=== PATIENT | female | born 1940 | race Caucasian/White ===

== ENCOUNTER 2017-01-20 14:24 | Outpatient (CLI) | payer OTHER ==
--- NOTE | 2017-01-20 15:27 | DIAGNOSTIC IMAGING REPORT ---
PROCEDURE: XR CHEST 2 VIEW INDICATION: PRE OP TECHNIQUE: PA and lateral views. COMPARISON: None. FINDINGS: Lungs are clear. Heart and mediastinum are normal. Thorax is normal. Ossification of breast implants. IMPRESSION: 1. Negative chest.
== END 2017-01-20 23:00 ==
LOC: XR SRH 14:24
DX: Z01.818 Encounter for other preprocedural examination (principal); Z01.812 Encounter for preprocedural laboratory examination

== ENCOUNTER 2017-01-26 10:24 | Emergency (ER) | payer OTHER ==
--- NOTE | 2017-01-26 12:11 | DIAGNOSTIC IMAGING REPORT ---
PROCEDURE: XR RIBS UNILAT W/PA CHEST-LT INDICATION: TRAUMA/INJURY TECHNIQUE: Two views of the left ribs with single PA view chest. COMPARISON: Chest dated 01/20/2017 FINDINGS: LEFT RIBS: No displaced rib fractures. No suspicious rib lesions. CHEST: Normal cardiomediastinal contour. Clear lungs without pleural effusion, pneumothorax, or contusion. The other visible osseous structures are intact. IMPRESSION: 1. Intact left ribs. 2. Normal chest without radiographic evidence of trauma.
--- NOTE | 2017-01-26 12:52 | ED NURSING NOTES ---
Clinical Report - Nurses [facility] [address] [place] [address] 01/26/2017 10:25 Patient: ADY WIGGINS TRIAGE Triage time 10:35. Acuity: LEVEL 4. Chief Complaint: FALL 1-2 FEET OFF A LADDER while standing, onto a hard surface. Alert. No acute distress. SEPSIS SCREEN: Sepsis Screen. Negative (no infection suspected/documented). --10:51 Carolina Hines R.N. 10:34 01/26/17. BP: 157/97. HR: 68. RR: 16. O2 saturation: 95%. Temp: 98.2 F. Pain level now: 12/26. Additional comments: worse with movement 08/25. --10:51 Carolina Hines R.N. Weight: 60.3 kg stated. Height/Length: 56 inches Per Patient. BMI: 29.8. --10:47 Carolina Hines R.N. Medications D3 Adult Oral. --10:39 Carolina Hines R.N. Citalopram Hydrobromide Oral. --10:39 Carolina Hines R.N. Levothyroxine Sodium Oral. --10:40 Carolina Hines R.N. Premarin Oral. --10:40 Carolina Hines R.N. Alendronate Sodium Oral. --10:40 Carolina Hines R.N. Spiriva HandiHaler Inhalation. --10:40 Carolina Hines R.N. Medication/allergy information source: the patient. --10:51 Carolina Hines R.N. Allergies Codeine. --10:38 Carolina Hines R.N. History Arrived by private vehicle. Historian: patient. Unaccompanied. Primary physician (vandana). This occurred (7 days ago). Occurred (washer). ( climbed up on washer and leaned over states she did not fall but the pressure from laying across the washer has caused pain). She has had trouble walking. Limited ROM present. ( any twisting makes pain worse). No loss of consciousness. No alteration in mental status, dizziness or neck pain. 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 PAST MEDICAL HX: Osteoporosis. Immunizations: up-to-date. The patient is post-menopausal. ( copd, hypothyroid,). SURGERY HX: Bladder suspension (removal/repair). Right shoulder surgery. SOCIAL HX: Current every day smoker (electronic cigarrettes). No alcohol use or drug use. ABUSE ASSESSMENT: No report of abuse. FALL RISK ASSESSMENT: Fall risk assessment completed. No fall risk identified. NUTRITIONAL RISK ASSESSMENT: The nutritional risk assessment revealed no deficiencies. FUNCTIONAL ASSESSMENT: Functional assessment: no impairments noted. LEARNING NEEDS ASSESSMENT: The learning needs assessment revealed no barriers. SKIN INTEGRITY ASSESSMENT: Skin integrity risk assessment completed. No skin integrity risk identified. --10:51 Carolina Hines R.N. PROBLEMS: COPD - Chronic Obstructive Pulmonary Disease. --10:43 Carolina Hines R.N. Assessment GENERAL / NEURO / PSYCH: Alert. Oriented X 4. Patient appears calm and cooperative. RESPIRATORY: Respirations not labored. CVS: Capillary refill less than 2 seconds. SKIN: Mucous membranes are pink. Skin is warm. --10:51 Carolina Hines R.N. Interventions ID band on patient. To treatment room. --10:51 Carolina Hines R.N. PHYSICAL ASSESSMENT 11:40 01/26/17. GENERAL / NEURO / PSYCH: Alert. Appears in no acute distress. RESPIRATORY: Respirations not labored. Chest nontender. Decreased breath sounds. CVS: Capillary refill less than 2 seconds. GI / : Abdomen soft and nontender. EXTREMITIES: Limited ROM present. SKIN: Skin intact. Skin is pale. Skin is warm and dry. --11:40 Carolina Hines R.N. NURSING PROGRESS NOTES The plan of care for this patient has been created. Patient gowned. Head of bed elevated. Warming measures: blanket applied. Reassurance given. Two patient identifiers checked. Call light placed in reach. Bed placed in lowest position. Brakes of bed on. Patient ready for evaluation- chart flagged and ED physician notified. ED physician at the patient's bedside. --10:55 Carolina Hines R.N. 11:37 01/26/2017 Motrin PO Tablets 800 mg given. Allergies verified and confirmed 5 rights. --11:37 Carolina Hines R.N. 12:18 01/26/2017 Motrin PO Response: pain is improving. Symptoms have improved the patient feels better. --12:18 Carolina Hines R.N. DISPOSITION / DISCHARGE 13:10 01/26/17. Condition at departure: improved. The goals identified in the patient's plan of care were met. No learning barriers present. Discharge instructions provided and reviewed with the patient. Reviewed warnings. Reviewed medication(s). Treatments reviewed. Patient verbalized understanding. Written instructions provided in Kiswahili. The patient was discharged by the physician. She was discharged home and unaccompanied at time of discharge. She left the Emergency Department ambulatory and via private vehicle. Patient driving. FALL RISK ASSESSMENT: Fall risk assessment completed. No fall risk identified. --13:10 Hemal De Leon R.N. 13:09 01/26/17. BP: 144/86. HR: 77. RR: 16. O2 saturation: 99% on room air. Temp: 98.2 F (oral). Pain level now: 01/23. --13:10 Hemal De Leon R.N. 13:10 01/26/17. Departure time: 13:10. --13:10 Hemal De Leon R.N. Locked/Released at 01/26/2017 13:14 by Hemal De Leon R.N.
--- NOTE | 2017-01-26 12:52 | ED CLINICAL REPORT ---
Clinical Report - Physicians/Mid Levels [facility] [address] [place] [address] 01/26/2017 10:25 Patient: ADY WIGGINS Time Seen: 1042. Arrived- By private vehicle. Historian- patient. HISTORY OF PRESENT ILLNESS Chief Complaint: Injury to CHEST. Location of injuries- chest. The injury occurred about 1 week ago. ( Leaning into washing machine injured L ribs.). Occurred at home. Patient did not fall. The patient complains of moderate pain. No blow to the head. REVIEW OF SYSTEMS The patient has had chest pain. No difficulty breathing or fever. All systems otherwise negative, except as recorded above. PAST HISTORY COPD - Chronic Obstructive Pulmonary Disease Osteoporosis Hypothyroidism. Medications: Spiriva HandiHaler Inhalation. Alendronate Sodium Oral. Premarin Oral. Levothyroxine Sodium Oral. Citalopram Hydrobromide Oral. D3 Adult Oral. Allergies: Codeine. 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 No alcohol use or drug use. ADDITIONAL NOTES The nursing notes have been reviewed with agreement regarding the chief complaint, PMH and patient medications and allergies. PHYSICAL EXAM Vital Signs: 01/26/2017 10:35 BP: 157/97. HR: 68. RR: 16. O2 saturation: 95%. Temp: 98.2 F. Pain level now: 2/10. Have been reviewed. Hypertensive. Heart rate normal. Respiratory rate normal. Temperature normal. Oxygen saturation normal. Appearance: Alert. Oriented X3. No acute distress. ENT: Pharynx normal. CVS: Heart sounds normal. Rate normal. Rhythm normal. Respiratory: No respiratory distress. Chest wall injury: mild tenderness located in the middle, left and lateral chest. No abrasion. No ecchymosis. No deformity. No splinting present. No paradoxical movement. Breath sounds normal. Abdomen: No visible injury. Soft and nontender. Bowel sounds normal. No organomegaly. No mass. Back: No tenderness. ROM normal. Skin: Skin intact. Skin warm and dry. Extremities: Extremities atraumatic. Neuro: Oriented X 3. LABS, X-RAYS, AND EKG Sternum / Ribs X-rays: No fracture present. Normal lung markings present. Soft tissues normal. No bony lesion present. (1. Intact left ribs. 2. Normal chest without radiographic evidence of trauma.). Views: left ribs. PA of chest. Technique: good. The X-rays were independently viewed by me, interpreted by the radiologist and discussed with the radiologist. Prior films were not available for comparison. Interpretation time: 12:51. PROGRESS AND PROCEDURES Course of Care: Ibuprofen 800 mg PO given. Physical exam findings are improved. Symptoms much better. Disposition: Discharged home in good and improved condition. CLINICAL IMPRESSION Single contusion to the left chest. INSTRUCTIONS Apply ice for 20 minutes four times a day. Don't apply ice directly to skin. Your Current Medications: CONTINUE TAKING THE FOLLOWING MEDICATIONS: Alendronate Sodium Oral. Citalopram Hydrobromide Oral. D3 Adult Oral. Levothyroxine Sodium Oral. Premarin Oral. Spiriva HandiHaler Inhalation. Prescription Medications: Tramadol 50 mg: take 1 orally every 6 hours as needed for pain and stiffness. Dispense fifteen (15). No refills. Diclofenac 50 mg tablets: take 1 tablet orally every 6 hours as needed for pain or stiffness. Dispense thirty (30). No refill. Follow-up: Follow up with your doctor in two days. Call for an appointment. Screening today revealed the patient's blood pressure to be in the hypertensive range. The patient should follow up with a primary care provider for blood pressure management. (Electronically signed by Mainor Gilbert Dr. 01/27/2017 20:46)
--- NOTE | 2017-01-26 12:52 | ED ORDER SUMMARY ---
..... Patient: ADY WIGGINS OrderSheet [facility] VisitID: [id number] [address] [place] [address] 76y, F Registration Date/Time: 01/26/2017 ORDER SHEET Weight: 60.3 kg (stated) Allergies: Codeine GENERAL ORDERS: Ribs Unilat w PA Chest Left Urgent (11:01/26/2017 Cody Vicente) (Ack 11:10 Mary) (11:41 TChapman R.N.) MEDICATION ORDERS: Motrin PO 800 mg (NOW) (11:01/26/2017 Cody Vicente) (Ack 11:12 TChapman R.N.) (11:37 TChapman R.N.) IV FLUIDS: ORDER SHEET NOTES: [Electronically signed by Hemal De Leon R.N. (13:14 01/26/2017)] [Electronically signed by Mainor Gilbert Dr. (20:46 01/27/2017)] [Electronically locked/signed by Hemal De Leon R.N. (13:14 01/26/2017)]
--- NOTE | 2017-01-26 12:52 | ED NURSING NOTES ---
Clinical Report - Nurses [facility] [address] [place] [address] 01/26/2017 10:25 Patient: ADY WIGGINS TRIAGE Triage time 10:35. Acuity: LEVEL 4. Chief Complaint: FALL 1-2 FEET OFF A LADDER while standing, onto a hard surface. Alert. No acute distress. SEPSIS SCREEN: Sepsis Screen. Negative (no infection suspected/documented). --10:51 Carolina Hines R.N. 10:34 01/26/17. BP: 157/97. HR: 68. RR: 16. O2 saturation: 95%. Temp: 98.2 F. Pain level now: 12/26. Additional comments: worse with movement 08/25. --10:51 Carolina Hines R.N. Weight: 60.3 kg stated. Height/Length: 56 inches Per Patient. BMI: 29.8. --10:47 Carolina Hines R.N. Medications D3 Adult Oral. --10:39 Carolina Hines R.N. Citalopram Hydrobromide Oral. --10:39 Carolina Hines R.N. Levothyroxine Sodium Oral. --10:40 Carolina Hines R.N. Premarin Oral. --10:40 Carolina Hines R.N. Alendronate Sodium Oral. --10:40 Carolina Hines R.N. Spiriva HandiHaler Inhalation. --10:40 Carolina Hines R.N. Medication/allergy information source: the patient. --10:51 Carolina Hines R.N. Allergies Codeine. --10:38 Carolina Hines R.N. History Arrived by private vehicle. Historian: patient. Unaccompanied. Primary physician (vandana). This occurred (7 days ago). Occurred (washer). ( climbed up on washer and leaned over states she did not fall but the pressure from laying across the washer has caused pain). She has had trouble walking. Limited ROM present. ( any twisting makes pain worse). No loss of consciousness. No alteration in mental status, dizziness or neck pain. 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 PAST MEDICAL HX: Osteoporosis. Immunizations: up-to-date. The patient is post-menopausal. ( copd, hypothyroid,). SURGERY HX: Bladder suspension (removal/repair). Right shoulder surgery. SOCIAL HX: Current every day smoker (electronic cigarrettes). No alcohol use or drug use. ABUSE ASSESSMENT: No report of abuse. FALL RISK ASSESSMENT: Fall risk assessment completed. No fall risk identified. NUTRITIONAL RISK ASSESSMENT: The nutritional risk assessment revealed no deficiencies. FUNCTIONAL ASSESSMENT: Functional assessment: no impairments noted. LEARNING NEEDS ASSESSMENT: The learning needs assessment revealed no barriers. SKIN INTEGRITY ASSESSMENT: Skin integrity risk assessment completed. No skin integrity risk identified. --10:51 Carolina Hines R.N. PROBLEMS: COPD - Chronic Obstructive Pulmonary Disease. --10:43 Carolina Hines R.N. Assessment GENERAL / NEURO / PSYCH: Alert. Oriented X 4. Patient appears calm and cooperative. RESPIRATORY: Respirations not labored. CVS: Capillary refill less than 2 seconds. SKIN: Mucous membranes are pink. Skin is warm. --10:51 Carolina Hines R.N. Interventions ID band on patient. To treatment room. --10:51 Carolina Hines R.N. PHYSICAL ASSESSMENT 11:40 01/26/17. GENERAL / NEURO / PSYCH: Alert. Appears in no acute distress. RESPIRATORY: Respirations not labored. Chest nontender. Decreased breath sounds. CVS: Capillary refill less than 2 seconds. GI / : Abdomen soft and nontender. EXTREMITIES: Limited ROM present. SKIN: Skin intact. Skin is pale. Skin is warm and dry. --11:40 Carolina Hines R.N. NURSING PROGRESS NOTES The plan of care for this patient has been created. Patient gowned. Head of bed elevated. Warming measures: blanket applied. Reassurance given. Two patient identifiers checked. Call light placed in reach. Bed placed in lowest position. Brakes of bed on. Patient ready for evaluation- chart flagged and ED physician notified. ED physician at the patient's bedside. --10:55 Carolina Hines R.N. 11:37 01/26/2017 Motrin PO Tablets 800 mg given. Allergies verified and confirmed 5 rights. --11:37 Carolina Hines R.N. 12:18 01/26/2017 Motrin PO Response: pain is improving. Symptoms have improved the patient feels better. --12:18 Carolina Hines R.N. DISPOSITION / DISCHARGE 13:10 01/26/17. Condition at departure: improved. The goals identified in the patient's plan of care were met. No learning barriers present. Discharge instructions provided and reviewed with the patient. Reviewed warnings. Reviewed medication(s). Treatments reviewed. Patient verbalized understanding. Written instructions provided in Setswana. The patient was discharged by the physician. She was discharged home and unaccompanied at time of discharge. She left the Emergency Department ambulatory and via private vehicle. Patient driving. FALL RISK ASSESSMENT: Fall risk assessment completed. No fall risk identified. --13:10 Hemal De Leon R.N. 13:09 01/26/17. BP: 144/86. HR: 77. RR: 16. O2 saturation: 99% on room air. Temp: 98.2 F (oral). Pain level now: 01/23. --13:10 Hemal De Leon R.N. 13:10 01/26/17. Departure time: 13:10. --13:10 Hemal De Leon R.N. Locked/Released at 01/26/2017 13:14 by Hemal De Leon R.N.
--- NOTE | 2017-01-26 12:52 | ED ORDER SUMMARY ---
..... Patient: ADY WIGGINS OrderSheet [facility] VisitID: [id number] [address] [place] [address] 76y, F Registration Date/Time: 01/26/2017 ORDER SHEET Weight: 60.3 kg (stated) Allergies: Codeine GENERAL ORDERS: Ribs Unilat w PA Chest Left Urgent (11:01/26/2017 Cody Vicente) (Ack 11:10 Mary) (11:41 TChapman R.N.) MEDICATION ORDERS: Motrin PO 800 mg (NOW) (11:01/26/2017 oCdy Vicente) (Ack 11:12 TChapman R.N.) (11:37 TChapman R.N.) IV FLUIDS: ORDER SHEET NOTES: [Electronically signed by Hemal De Leon R.N. (13:14 01/26/2017)] [Electronically signed by Mainor Gilbert Dr. (20:46 01/27/2017)] [Electronically locked/signed by Hemal De Leon R.N. (13:14 01/26/2017)]
--- NOTE | 2017-01-27 20:46 | ED MAR SUMMARY ---
..... Medication Administration Record [facility] [address] [place] [address] Patient: ADY WIGGINS Visit ID: [id number] 76y, F Weight: 60.3 kg Height/Length: 56 in BMI: 29.8 ALLERGIES: Codeine Given 11:37 01/26/2017 Carolina Hines R.N. Medication Administered: MOTRIN [PO], Dose: 800 mg Tablets PO. Medication Ordered: Motrin PO 800 mg (NOW).
--- NOTE | 2017-01-27 20:46 | ED DISCHARGE INSTRUCTIONS ---
Patient: ADY WIGGINS General Instructions [facility] VisitID: [id number] [place] [address] 76y, F Registration Date/Time: 01/26/2017 Single contusion to the left chest. INSTRUCTIONS Apply ice for 20 minutes four times a day. Don't apply ice directly to skin. Your Current Medications: CONTINUE TAKING THE FOLLOWING MEDICATIONS: Alendronate Sodium Oral. Citalopram Hydrobromide Oral. D3 Adult Oral. Levothyroxine Sodium Oral. Premarin Oral. Spiriva HandiHaler Inhalation. Prescription Medications: Tramadol 50 mg: take 1 orally every 6 hours as needed for pain and stiffness. Dispense fifteen (15). No refills. Diclofenac 50 mg tablets: take 1 tablet orally every 6 hours as needed for pain or stiffness. Dispense thirty (30). No refill. Follow-up: Follow up with your doctor in two days. Call for an appointment. Screening today revealed the patient's blood pressure to be in the hypertensive range. The patient should follow up with a primary care provider for blood pressure management. ADDITIONAL INFORMATION Contusion,Soft Tissue You have a CONTUSION, which is a bruise with swelling and some bleeding under the skin. There are no broken bones. This injury takes a few days to a few weeks to heal. Home Care: 1) Keep the injured part elevated to reduce pain and swelling. This is especially important during the first 48 hours. 2) Make an ice pack (ice cubes in a plastic bag, wrapped in a towel) and apply for 20 minutes every 1-2 hours the first day. Continue this 3-4 times a day until the pain and swelling goes away. 3) You may use acetaminophen (Tylenol) or ibuprofen (Motrin, Advil) to control pain, unless another pain medicine was prescribed. [ NOTE : If you have chronic liver or kidney disease or ever had a stomach ulcer or GI bleeding, talk with your doctor before using these medicines.] Follow Up with your doctor or this facility if you are not improving within the next THREE days. [NOTE: If X-rays were taken, they will be reviewed by a radiologist. You will be notified of any new findings that may affect your care.] Get Prompt Medical Attention if any of the following occur: -- Pain or swelling increases -- Injured arm or leg becomes cold, blue, numb or tingly -- Redness, warmth or drainage from the skin Tramadol Hydrochloride Oral tablet What is this medicine? TRAMADOL (TRA ma dole) is a pain reliever. It is used to treat moderate to severe pain in adults. How should I use this medicine? Take this medicine by mouth with a full glass of water. Follow the directions on the prescription label. If the medicine upsets your stomach, take it with food or milk. Do not take more medicine than you are told to take. Talk to your collection supervisor regarding the use of this medicine in children. Special care may be needed. What side effects may I notice from receiving this medicine? Side effects that you should report to your doctor or health day care worker as soon as possible: allergic reactions like skin rash, itching or hives, swelling of the face, lips, or tongue breathing difficulties, wheezing confusion itching light headedness or fainting spells redness, blistering, peeling or loosening of the skin, including inside the mouth seizures Side effects that usually do not require medical attention (report to your doctor or health day care worker if they continue or are bothersome): constipation dizziness drowsiness headache nausea, vomiting What may interact with this medicine? Do not take this medicine with any of the following medications: MAOIs like Carbex, Eldepryl, Marplan, Nardil, and Parnate This medicine may also interact with the following medications: alcohol or medicines that contain alcohol antihistamines benzodiazepines bupropion carbamazepine or oxcarbazepine clozapine cyclobenzaprine digoxin furazolidone linezolid medicines for depression, anxiety, or psychotic disturbances medicines for migraine headache like almotriptan, eletriptan, frovatriptan, naratriptan, rizatriptan, sumatriptan, zolmitriptan medicines for pain like pentazocine, buprenorphine, butorphanol, meperidine, nalbuphine, and propoxyphene medicines for sleep muscle relaxants naltrexone phenobarbital phenothiazines like perphenazine, thioridazine, chlorpromazine, mesoridazine, fluphenazine, prochlorperazine, promazine, and trifluoperazine procarbazine warfarin What if I miss a dose? If you miss a dose, take it as soon as you can. If it is almost time for your next dose, take only that dose. Do not take double or extra doses. Where should I keep my medicine? Keep out of the reach of children. Store at room temperature between 15 and 30 degrees C (59 and 86 degrees F). Keep container tightly closed. Throw away any unused medicine after the expiration date. What should I tell my health care provider before I take this medicine? They need to know if you have any of these conditions: brain tumor depression drug abuse or addiction head injury if you frequently drink alcohol containing drinks kidney disease or trouble passing urine liver disease lung disease, asthma, or breathing problems seizures or epilepsy suicidal thoughts, plans, or attempt; a previous suicide attempt by you or a family member an unusual or allergic reaction to tramadol, codeine, other medicines, foods, dyes, or preservatives or trying to get breast-feeding What should I watch for while using this medicine? Tell your doctor or health day care worker if your pain does not go away, if it gets worse, or if you have new or a different type of pain. You may develop tolerance to the medicine. Tolerance means that you will need a higher dose of the medicine for pain relief. Tolerance is normal and is expected if you take this medicine for a long time. Do not suddenly stop taking your medicine because you may develop a severe reaction. Your body becomes used to the medicine. This does NOT mean you are addicted. Addiction is a behavior related to getting and using a drug for a non-medical reason. If you have pain, you have a medical reason to take pain medicine. Your doctor will tell you how much medicine to take. If your doctor wants you to stop the medicine, the dose will be slowly lowered over time to avoid any side effects. You may get drowsy or dizzy. Do not drive, use machinery, or do anything that needs mental alertness until you know how this medicine affects you. Do not stand or sit up quickly, especially if you are an older patient. This reduces the risk of dizzy or fainting spells. Alcohol can increase or decrease the effects of this medicine. Avoid alcoholic drinks. You may have constipation. Try to have a bowel movement at least every 2 to 3 days. If you do not have a bowel movement for 3 days, call your doctor or health day care worker. Your mouth may get dry. Chewing sugarless gum or sucking hard candy, and drinking plenty of water may help. Contact your doctor if the problem does not go away or is severe. You have been given the following additional information: Contusion, Soft Tissue Tramadol Hydrochloride Oral tablet (Electronically signed by Mainor Gilbert Dr. 01/27/2017 20:46)
--- NOTE | 2017-01-27 20:46 | ED MAR SUMMARY ---
..... Medication Administration Record [facility] [address] [place] [address] Patient: ADY WIGGINS Visit ID: [id number] 76y, F Weight: 60.3 kg Height/Length: 56 in BMI: 29.8 ALLERGIES: Codeine Given 11:37 01/26/2017 Carolina Hines R.N. Medication Administered: MOTRIN [PO], Dose: 800 mg Tablets PO. Medication Ordered: Motrin PO 800 mg (NOW).
--- NOTE | 2017-01-27 20:46 | ED MED RECONCILIATION SUMMARY ---
Patient: ADY WIGGINS Medication Reconciliation Report [facility] VisitID: [id number] [address] [place] [address] 76y, F Registration Date/Time: 01/26/2017 Weight: 60.3 kg Height/Length: 56 in. BMI: 29.8 ALLERGIES: Codeine The patient's Home Medications are listed below: CONTINUE TAKING THE FOLLOWING MEDICATIONS: Alendronate Sodium Oral Citalopram Hydrobromide Oral D3 Adult Oral Levothyroxine Sodium Oral Premarin Oral Spiriva HandiHaler Inhalation The source(s) of the original Home Medication information: patient The following Medications were given to the patient in the Emergency Department: Motrin [PO] PO 800 mg, administered: 01/26/2017 11:37:00 AM The following Medications were prescribed to the patient: Tramadol 50 mg: take 1 orally every 6 hours as needed for pain and stiffness. Dispense fifteen (15). No refills. -- Mainor Gilbert Dr. Diclofenac 50 mg tablets: take 1 tablet orally every 6 hours as needed for pain or stiffness. Dispense thirty (30). No refill. -- Mainor Gilbert Dr.
--- NOTE | 2017-01-27 20:46 | ED DISCHARGE INSTRUCTIONS ---
Patient: ADY WIGIGNS General Instructions [facility] VisitID: [id number] [place] [address] 76y, F Registration Date/Time: 01/26/2017 Single contusion to the left chest. INSTRUCTIONS Apply ice for 20 minutes four times a day. Don't apply ice directly to skin. Your Current Medications: CONTINUE TAKING THE FOLLOWING MEDICATIONS: Alendronate Sodium Oral. Citalopram Hydrobromide Oral. D3 Adult Oral. Levothyroxine Sodium Oral. Premarin Oral. Spiriva HandiHaler Inhalation. Prescription Medications: Tramadol 50 mg: take 1 orally every 6 hours as needed for pain and stiffness. Dispense fifteen (15). No refills. Diclofenac 50 mg tablets: take 1 tablet orally every 6 hours as needed for pain or stiffness. Dispense thirty (30). No refill. Follow-up: Follow up with your doctor in two days. Call for an appointment. Screening today revealed the patient's blood pressure to be in the hypertensive range. The patient should follow up with a primary care provider for blood pressure management. ADDITIONAL INFORMATION Contusion,Soft Tissue You have a CONTUSION, which is a bruise with swelling and some bleeding under the skin. There are no broken bones. This injury takes a few days to a few weeks to heal. Home Care: 1) Keep the injured part elevated to reduce pain and swelling. This is especially important during the first 48 hours. 2) Make an ice pack (ice cubes in a plastic bag, wrapped in a towel) and apply for 20 minutes every 1-2 hours the first day. Continue this 3-4 times a day until the pain and swelling goes away. 3) You may use acetaminophen (Tylenol) or ibuprofen (Motrin, Advil) to control pain, unless another pain medicine was prescribed. [ NOTE : If you have chronic liver or kidney disease or ever had a stomach ulcer or GI bleeding, talk with your doctor before using these medicines.] Follow Up with your doctor or this facility if you are not improving within the next THREE days. [NOTE: If X-rays were taken, they will be reviewed by a radiologist. You will be notified of any new findings that may affect your care.] Get Prompt Medical Attention if any of the following occur: -- Pain or swelling increases -- Injured arm or leg becomes cold, blue, numb or tingly -- Redness, warmth or drainage from the skin Tramadol Hydrochloride Oral tablet What is this medicine? TRAMADOL (TRA ma dole) is a pain reliever. It is used to treat moderate to severe pain in adults. How should I use this medicine? Take this medicine by mouth with a full glass of water. Follow the directions on the prescription label. If the medicine upsets your stomach, take it with food or milk. Do not take more medicine than you are told to take. Talk to your blow mold machine operator regarding the use of this medicine in children. Special care may be needed. What side effects may I notice from receiving this medicine? Side effects that you should report to your doctor or health patient care provider as soon as possible: allergic reactions like skin rash, itching or hives, swelling of the face, lips, or tongue breathing difficulties, wheezing confusion itching light headedness or fainting spells redness, blistering, peeling or loosening of the skin, including inside the mouth seizures Side effects that usually do not require medical attention (report to your doctor or health patient care provider if they continue or are bothersome): constipation dizziness drowsiness headache nausea, vomiting What may interact with this medicine? Do not take this medicine with any of the following medications: MAOIs like Carbex, Eldepryl, Marplan, Nardil, and Parnate This medicine may also interact with the following medications: alcohol or medicines that contain alcohol antihistamines benzodiazepines bupropion carbamazepine or oxcarbazepine clozapine cyclobenzaprine digoxin furazolidone linezolid medicines for depression, anxiety, or psychotic disturbances medicines for migraine headache like almotriptan, eletriptan, frovatriptan, naratriptan, rizatriptan, sumatriptan, zolmitriptan medicines for pain like pentazocine, buprenorphine, butorphanol, meperidine, nalbuphine, and propoxyphene medicines for sleep muscle relaxants naltrexone phenobarbital phenothiazines like perphenazine, thioridazine, chlorpromazine, mesoridazine, fluphenazine, prochlorperazine, promazine, and trifluoperazine procarbazine warfarin What if I miss a dose? If you miss a dose, take it as soon as you can. If it is almost time for your next dose, take only that dose. Do not take double or extra doses. Where should I keep my medicine? Keep out of the reach of children. Store at room temperature between 15 and 30 degrees C (59 and 86 degrees F). Keep container tightly closed. Throw away any unused medicine after the expiration date. What should I tell my health care provider before I take this medicine? They need to know if you have any of these conditions: brain tumor depression drug abuse or addiction head injury if you frequently drink alcohol containing drinks kidney disease or trouble passing urine liver disease lung disease, asthma, or breathing problems seizures or epilepsy suicidal thoughts, plans, or attempt; a previous suicide attempt by you or a family member an unusual or allergic reaction to tramadol, codeine, other medicines, foods, dyes, or preservatives or trying to get breast-feeding What should I watch for while using this medicine? Tell your doctor or health patient care provider if your pain does not go away, if it gets worse, or if you have new or a different type of pain. You may develop tolerance to the medicine. Tolerance means that you will need a higher dose of the medicine for pain relief. Tolerance is normal and is expected if you take this medicine for a long time. Do not suddenly stop taking your medicine because you may develop a severe reaction. Your body becomes used to the medicine. This does NOT mean you are addicted. Addiction is a behavior related to getting and using a drug for a non-medical reason. If you have pain, you have a medical reason to take pain medicine. Your doctor will tell you how much medicine to take. If your doctor wants you to stop the medicine, the dose will be slowly lowered over time to avoid any side effects. You may get drowsy or dizzy. Do not drive, use machinery, or do anything that needs mental alertness until you know how this medicine affects you. Do not stand or sit up quickly, especially if you are an older patient. This reduces the risk of dizzy or fainting spells. Alcohol can increase or decrease the effects of this medicine. Avoid alcoholic drinks. You may have constipation. Try to have a bowel movement at least every 2 to 3 days. If you do not have a bowel movement for 3 days, call your doctor or health patient care provider. Your mouth may get dry. Chewing sugarless gum or sucking hard candy, and drinking plenty of water may help. Contact your doctor if the problem does not go away or is severe. You have been given the following additional information: Contusion, Soft Tissue Tramadol Hydrochloride Oral tablet (Electronically signed by Mainor Gilbert Dr. 01/27/2017 20:46)
--- NOTE | 2017-01-27 20:46 | ED MED RECONCILIATION SUMMARY ---
Patient: ADY WIGGINS Medication Reconciliation Report [facility] VisitID: [id number] [address] [place] [address] 76y, F Registration Date/Time: 01/26/2017 Weight: 60.3 kg Height/Length: 56 in. BMI: 29.8 ALLERGIES: Codeine The patient's Home Medications are listed below: CONTINUE TAKING THE FOLLOWING MEDICATIONS: Alendronate Sodium Oral Citalopram Hydrobromide Oral D3 Adult Oral Levothyroxine Sodium Oral Premarin Oral Spiriva HandiHaler Inhalation The source(s) of the original Home Medication information: patient The following Medications were given to the patient in the Emergency Department: Motrin [PO] PO 800 mg, administered: 01/26/2017 11:37:00 AM The following Medications were prescribed to the patient: Tramadol 50 mg: take 1 orally every 6 hours as needed for pain and stiffness. Dispense fifteen (15). No refills. -- Mainor Gilbert Dr. Diclofenac 50 mg tablets: take 1 tablet orally every 6 hours as needed for pain or stiffness. Dispense thirty (30). No refill. -- Mainor Gilbert Dr.
== END 2017-01-26 13:10 | disposition home or self-care (01) ==
LOC: ED SRH 10:24
DX: S20.02XA Contusion of left breast, initial encounter (principal); W22.8XXA Striking against or struck by other objects, initial encounter; Y99.9 Unspecified external cause status; Y92.008 Other place in unspecified non-institutional (private) residence as the place of occurrence of the external cause; Y93.89 Activity, other specified; J44.9 Chronic obstructive pulmonary disease, unspecified; E07.9 Disorder of thyroid, unspecified; Z79.51 Long term (current) use of inhaled steroids; Z79.899 Other long term (current) drug therapy; Z88.5 Allergy status to narcotic agent

== ENCOUNTER 2017-02-10 10:58 | Outpatient (CLI) | payer OTHER ==
--- NOTE | 2017-02-10 12:15 | DIAGNOSTIC IMAGING REPORT ---
PROCEDURE: DEXA BONE DENSITY STUDY CLINICAL INDICATION: SCREENING COMPARISON: None. FINDINGS: LUMBAR SPINE: Bone mineral density 0.829 g/cm2, T score -2.0 osteopenia LEFT HIP: Bone mineral density 0.7 g/cm2, T score -2.0 osteopenia LEFT FEMORAL NECK: Bone mineral density 0.538 g/cm2, T score -2.8 osteoporosis FRACTURE RISK CALCULATION ( when applicable): 10-year fracture risk of a major osteoporotic fracture and of a hip fracture not reported because some T-score at or below -2.5 (T score greater or equal to -1.0 to: NORMAL) (T score from -1.1 to -2.4: OSTEOPENIA) (T score ess than or equal to -2.5: OSTEOPOROSIS) IMPRESSION: 1. Osteoporosis femoral neck, osteopenia hip and spine.
--- NOTE | 2017-02-12 12:54 | DIAGNOSTIC IMAGING REPORT ---
PROCEDURE: MG B/L IMPLANTS - SCREENING INDICATION: SCREENING TECHNIQUE: CC and MLO digital views of each breast with CC and MLO digital implant-displacement views. COMPARISON: Mammogram 02/19/2015. FINDINGS: Computer-aided detection applied. Mildly dense pattern. Stable bilateral prepectoral implants with calcified capsules. No suspicious masses or pleomorphic microcalcifications. No significant interval changes IMPRESSION: 1. No mammographic evidence of malignancy 2. Stable bilateral breast implants RESULT CODE: 1- Negative. A. A negative report should not delay biopsy if a dominant or clinically suspicious mass is present. 10-15% of cancers are not identified by x-ray. B. A negative report may reinforce clinical impression. C. Adenosis and dense breasts may obscure an underlying neoplasm. D. False positive reports average 6-10%. E.. A yearly screening mammogram is recommended. A reminder letter will be scheduled.
== END 2017-02-10 23:00 ==
LOC: MAM SRH 10:58
DX: M81.8 Other osteoporosis without current pathological fracture (principal); M85.88 Other specified disorders of bone density and structure, other site
CPT/HCPCS: 90074; 92560; 92630; 95059

== ENCOUNTER 2017-02-10 14:28 | Outpatient (CLI) | payer OTHER | END 2017-02-10 23:00 | LOC: LAB SRH 14:28 | DX: Z01.812 Encounter for preprocedural laboratory examination (principal); N39.3 Stress incontinence (female) (male); N81.2 Incomplete uterovaginal prolapse | CPT/HCPCS: 90074; 92560; 92630; 95059 ==